=== PATIENT | male | born 1995 | race Caucasian/White ===

== ENCOUNTER 2018-06-08 17:08 | Emergency (ER) | payer OTHER ==
[2018-06-08 17:20] VITALS: BP 109/60
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
== END 2018-06-08 18:31 | disposition home or self-care (01) ==
LOC: ER 17:08
DX: S40.011A Contusion of right shoulder, initial encounter (principal); S16.1XXA Strain of muscle, fascia and tendon at neck level, initial encounter; V49.40XA Driver injured in collision with unspecified motor vehicles in traffic accident, initial encounter
CPT/HCPCS: 99283